=== PATIENT | female | born 1985 | race Hispanic/Latino ===

== ENCOUNTER 2018-07-16 12:26 | Emergency (ER) | payer OTHER ==
[2018-07-16] MEDS ORDERED: IPRATROPIUM/ALBUTEROL SULFATE 3 ML SOLUTION IH ONE (12:54)
== END 2018-07-16 13:46 | disposition home or self-care (01) ==
LOC: EDH 12:26
DX: J20.9 Acute bronchitis, unspecified (principal); Z98.51 Tubal ligation status; Z88.6 Allergy status to analgesic agent
CPT/HCPCS: 71046; 81025; 87804; 94640